=== PATIENT | female | born 1995 | race Caucasian/White ===

== ENCOUNTER 2021-07-27 07:52 | Emergency (ER) | payer OTHER ==
[~2021-07-27] VITALS: Ht 160 cm; Wt 47.6 kg
[~2021-07-27 07:52] MED LIST: AUGMENTIN 500-1 EACH PO; DIFLUCAN150 MG PO; IBUPROFEN 600600 M1 PO; NOHOMEMEDICATIONS
[2021-07-27] MEDS ORDERED: HYDROCODON-ACE1 EAC7 PO (09:14)
[2021-07-27] MEDS ORDERED: MEDROLDOSEPACK PO (09:14)
[2021-07-27] MEDS ORDERED: ZPAK PO (09:14)
[2021-07-27 09:22] VITALS: BP 130/73
--- NOTE | 2021-07-27 10:21 | EKG ---
[place] [address] ELECTROCARDIOGRAM REPORT Name: MIRIAN DE LA CRUZ Room: [facility]#: [id number] Admission: 07/27/21 Attend Phys: Discharge: 07/27/21 Date of : 89 Date of Service: 07/27/21 0757 Report #: [id number] THIS REPORT FOR: //name// [facility] ED Test Date: 2021-07-27 Test Time: 07:57:51 Pat Name: MIRIAN DE LA CRUZ Department: Room: Gender: Skin Grader: CASSIA : 1995 Requested By: Jonas Choe Order Number: [id number] MD: Carlos Miller Measurements Intervals [place] Rate: 84 P: 75 [place]: 120 QRS: 78 QRSD: 85 T: 28 QT: 340 QTc: 402 Interpretive Statements Sinus rhythm RSR' in V1 or V2, probably normal variant Minimal ST depression, anterolateral leads Compared to ECG 10/12/2008 19:41:25 RSR' in V1 or V2 now present ST (T wave) deviation now present Electronically Signed On 07-27-2021 10:21:28 TRAUMA PROGRAM MANAGER by Carlos Miller [email or web address] <ELECTRONICALLY SIGNED> By: Carlos Miller MD, FAC 07/27/21 1021 0757 [id number] Carlos Miller MD, FAC /EPI
== END 2021-07-27 09:22 | disposition home or self-care (01) ==
LOC: M.ERS 07:52
DX: R07.89 Other chest pain (principal); J45.909 Unspecified asthma, uncomplicated; Z90.89 Acquired absence of other organs; Z88.2 Allergy status to sulfonamides; Z88.1 Allergy status to other antibiotic agents; Z88.8 Allergy status to other drugs, medicaments and biological substances